=== PATIENT | female | born 1955 | race Hispanic/Latino ===

== ENCOUNTER 2022-10-06 09:36 | Outpatient (CLI) | payer MEDICARE, BC | END 2022-10-06 09:37 | disposition home or self-care (01) | LOC: CSHMAMMO 09:36 | PROVIDERS: ATTEND Internal Medicine | DX: Z12.31 Encounter for screening mammogram for malignant neoplasm of breast (principal); Z80.3 Family history of malignant neoplasm of breast | CPT/HCPCS: 77063; 77067 ==